=== PATIENT | male | born 1970 | race Caucasian/White ===

== ENCOUNTER 2020-11-29 08:10 | Day surgery (SDC) | payer OTHER ==
[2020-11-28 10:17] VITALS: BMI 39.7
[2020-11-29 08:33] VITALS: RESP 18; TEMP 98.3
[2020-11-29] MEDS ORDERED: SODIUM CHLORIDE 0.9% 500 ML 500 ML IV ONE (08:33)
[2020-11-29] MEDS ORDERED: fentaNYL (PF) 50 MCG/ML 2 ML AMP ONE (10:22)
[2020-11-29] MEDS: BENZOCAINE SPRAY 1 CAN MUCOUS MEM ONE ×2 (10:33→10:52)
[2020-11-29] MEDS ORDERED: fentaNYL (PF) 50 MCG/ML 2 ML AMP IV ONE (10:52)
[2020-11-29] MEDS ORDERED: MIDAZOLAM 2 MG/2 ML VIAL IV ONE (10:53)
[2020-11-29 12:05] VITALS: BP 136/82; PULSE 64
--- NOTE | 2020-11-29 12:32 | ECHOT ---
TRANSESOPHAGEAL ECHOCARDIOGRAM DATE OF SERVICE: 11/29/2020 PERFORMING PHYSICIAN: Adrien Vazquez M.D. PROCEDURE PERFORMED: Transesophageal echocardiogram. INDICATION: Rule out cardiac source of embolization. COMPLICATIONS: None. LEVEL OF SEDATION: Moderate, with sedation length of 15 minutes. PROCEDURE DESCRIPTION: After obtaining informed consent, the patient was brought to the transesophageal echocardiogram room. Pulse oximetry and heart rate monitors were attached to the patient. Subsequently the transesophageal echocardiogram probe was advanced through the bite guard to the mid esophagus, where 2D echocardiogram images as well as color Doppler images of various cardiac structures were obtained. Particular attention was paid to the interatrial septum. Please note that the study was performed using color Doppler and pulse Doppler and continuous-wave Doppler. FINDINGS: The left ventricular dimension and systolic function appeared to be within normal limits. The ejection fraction appeared to be in the range of 50% to 55%. The right ventricle appeared to be of normal size. The left atrium and right atrium appeared to be within normal limits for dimension. The aortic valve appeared to be a trileaflet valve without stenosis or regurgitation. The mitral valve seems to be normal. The interatrial septum appeared to be intact without any shunt. The left atrial appendage appeared to be intact as well. CONCLUSION: 1. No evidence of cardiac source of embolization. 2. Intact interatrial septum without any shunt. 3. Normal left atrial appendage. 4. Normal cardiac chamber sizes. 5. Normal left ventricular dimension and systolic function. 6. Normal intracardiac valves. 7. No evidence of pericardial effusion. MMODL / IJN: [id number] /
== END 2020-11-29 12:07 | disposition home or self-care (01) ==
LOC: CATHCVL 08:10
PROVIDERS: ATTEND Internal Medicine Interventional Cardiology
DX: I63.9 Cerebral infarction, unspecified (principal); Z20.822 Contact with and (suspected) exposure to COVID-19; I10 Essential (primary) hypertension; E78.5 Hyperlipidemia, unspecified; E11.9 Type 2 diabetes mellitus without complications; F17.210 Nicotine dependence, cigarettes, uncomplicated; Z79.899 Other long term (current) drug therapy; Z79.82 Long term (current) use of aspirin; Z79.84 Long term (current) use of oral hypoglycemic drugs; I25.10 Atherosclerotic heart disease of native coronary artery without angina pectoris
CPT/HCPCS: 93312; 93325; 87635; J2250; J3010

== ENCOUNTER → 2022-12-07 | Outpatient (CLI) | payer OTHER ==
[2022-12-07 16:22] LABS: HCT 45.4 % (39.6-50.0); MCH 30.8 pg (27.0-32.0); MCHC 35.2 d/dL (32.0-37.0); MCV 87.5 FL (80.0-97.0); Mean Platelet Volume 9.6 FL (9.5-12.2); NRBC Per 100 WBC 0 X 10*3/uL (0.00-0.01); Platelet Count 282 X 10*3/uL (140-440); RBC 5.19 X 10*6/uL (4.40-5.60); RDW 12.2 % (11.5-14.5); WBC 10.19 X 10*3/uL (4.50-10.00)
[2022-12-07 16:32] LABS: ALT 41 U/L (10-49); AST 29 U/L (14-35); Albumin 4.2 d/dL (3.8-4.9); Alkaline Phosphatase 70 U/L (41-126); BUN/Creat Ratio 10.89 Ratio (12.00-20.00); Blood Urea Nitrogen 9.8 mg/dL (9.0-27.0); Calcium 9.4 mg/dL (8.7-10.3); Carbon Dioxide 21.8 mmol/L (21.6-31.8); Chloride 99 mmol/L (96-109); Glucose 376 mg/dL (70-110); Potassium 4.3 mmol/L (3.5-5.5); Sodium 134 mmol/L (135-145); Total Bilirubin 1.1 mg/dL (0.3-1.2); Total Protein 7.2 d/dL (6.2-8.2)
== END | disposition home or self-care (01) ==
LOC: LABWHC1 10:39
PROVIDERS: ATTEND Surgery
DX: E55.9 Vitamin D deficiency, unspecified (principal); E88.810 Metabolic syndrome; R94.31 Abnormal electrocardiogram [ECG] [EKG]
CPT/HCPCS: 36415; 80053; 82306; 82607; 82746; 83036; 84425; 85027; 93005

== ENCOUNTER → 2022-12-07 | Outpatient (CLI) | payer OTHER ==
[2022-12-07 10:14] VITALS: BP 166/100; PULSE 89; TEMP 98.3; BMI 36.9
--- NOTE | 2022-12-22 12:44 | P.HPBAR ---
Bariatric H&P - History & Physicial H&P Date: 12/07/22 History & Physicial: Visit/CC: new patient Patient initial contact: Initial weight: Initial weight in pounds: Height: 6 ft 1 in Initial BMI: Last weight: Current weight: 127.006 kg Current weight in pounds: 280.00 Current BMI: 36.9 [place] body weight (based on NIH guidelines): 83.461 kg Excess body weight loss: The patient is a 52 year-old M who presents for Bariatric Assessment. Patient resents today for bariatric consultation. Patient is morbidly obese. BMI is 37. His requesting sleeve gastrectomy. Patient's had lifetime problems obesity. Past Medical History Past Medical History: CVA/TIA, Diabetes Mellitus, Hypertension, Osteoarthritis (OA), Sleep Apnea/CPAP/BIPAP Additional Past Medical History / Comment(s): TIA in August 2020-no residual eff ects, uses CPAP History of Any Multi-Drug Resistant Organisms: None Reported Past Surgical History: Heart Catheterization, Orthopedic Surgery Additional Past Surgical History / Comment(s): arthroscopic right knee surg. Past Anesthesia/Blood Transfusion Reactions: No Reported Reaction Past Psychological History: Depression Smoking Status: Former smoker Past Alcohol Use History: None Reported Additional Past Alcohol Use History / Comment(s): quit smoking 20-25 yrs. ago, maybe smoked a year or so Past Drug Use History: Marijuana Additional Drug Use History / Comment(s): uses edibles occasionally Surgical - Exam Vital Signs Temp Pulse BP 98.3 F 89 166/100 12/07/22 09:55 12/07/22 09:55 12/07/22 09:55 - General well developed, well nourished, no distress - Eyes PERRL - ENT normal pinna, normal nares - Neck no masses - Respiratory normal expansion - Cardiovascular Rhythm: regular - Abdomen Abdomen: soft, non tender Bariatric Assessment & Plan Plan: Morbid obesity, BMI 37. Patient is an excellent understanding of sleeve gastrectomy. We went over the risks and benefits of procedure. He understood the risk possible gastric staple line disruption, bleeding scarring. The patient will be scheduled for EGD to evaluate the stomach. Bariatric Checklist Checklist: Plan: Checklist: EGD: 1. Hiatal hernia: 2. H. Pylori: HgbA1c: Vitamin D: Smoking: Primary care physician referral: Valerie Mcgovern Psychiatry clearance: Cardiology clearance: Sleep study: Diet journal: VTE risk score: VTE risk level: Rehab needs at discharge:
== END ==
LOC: BARWHC3 09:36
PROVIDERS: ATTEND Surgery
DX: E66.01 Morbid (severe) obesity due to excess calories (principal); F32.A Depression, unspecified; E11.9 Type 2 diabetes mellitus without complications; M19.90 Unspecified osteoarthritis, unspecified site; G47.30 Sleep apnea, unspecified; I10 Essential (primary) hypertension; Z87.891 Personal history of nicotine dependence; Z86.73 Personal history of transient ischemic attack (TIA), and cerebral infarction without residual deficits; Z68.36 Body mass index [BMI] 36.0-36.9, adult; Z79.84 Long term (current) use of oral hypoglycemic drugs; Z79.899 Other long term (current) drug therapy; Z79.82 Long term (current) use of aspirin
CPT/HCPCS: 99212

== ENCOUNTER 2023-01-11 11:21 | Day surgery (SDC) | payer OTHER ==
[2023-01-08 12:13] VITALS: BMI 37.5
[2023-01-11] MEDS: LACTATED RINGERS 1,000 ML IV SCH ×2 (11:54→11:56)
[2023-01-11 11:55] LABS: Glucose,Whole Blood 234 mg/dL (70-110)
[2023-01-11 12:01] VITALS: RESP 16; TEMP 97.2
[2023-01-11] MEDS ORDERED: PROPOFOL 10 MG/ML 20 ML VIAL IV ONE (12:20)
--- NOTE | 2023-01-11 12:44 | P.GSHP ---
History of Present Illness H&P Date: 01/11/23 Chief Complaint: GERD This is a 52-year-old male presents today for EGD. Patient issues with GERD. Past Medical History Past Medical History: CVA/TIA, Diabetes Mellitus, Hypertension, Osteoarthritis (OA), Sleep Apnea/CPAP/BIPAP Additional Past Medical History / Comment(s): TIA in August 2020-no residual effects, uses CPAP History of Any Multi-Drug Resistant Organisms: None Reported Past Surgical History: Heart Catheterization, Orthopedic Surgery Additional Past Surgical History / Comment(s): arthroscopic right knee surg. Past Anesthesia/Blood Transfusion Reactions: No Reported Reaction Additional Past Anesthesia/Blood Transfusion Reaction / Comment(s): no blood transfusion Smoking Status: Former smoker, Vaper Medications and Allergies Home Medications Medication Instructions Recorded Confirmed Type Aspirin 81 mg PO DAILY 11/28/20 01/08/23 History Glimepiride [Amaryl] 4 mg PO [id number] 11/28/20 01/08/23 History Insulin Detemir (Levemir) [Levemir] 50 unit SQ QAM 11/28/20 01/08/23 History Metoprolol Succinate (ER) [Toprol 50 mg PO DAILY 11/28/20 01/08/23 History Xl] Pioglitazone [Actos] 30 mg PO DAILY 11/28/20 01/08/23 History Sertraline [Zoloft] 50 mg PO DAILY 11/28/20 01/08/23 History lisinopriL [Zestril] 10 mg PO DAILY 11/28/20 01/08/23 History metFORMIN HCL [Glucophage XR] 750 mg PO DAILY 11/28/20 01/08/23 History Allergies Allergy/AdvReac Type Severity Reaction Status Date / Time No Known Allergies Allergy Verified 01/11/23 11:53 Surgical - Exam Vital Signs Temp Pulse Resp BP Pulse Ox 97.2 F L 79 16 162/93 96 01/11/23 11:56 01/11/23 11:56 01/11/23 11:56 01/11/23 11:56 01/11/23 11:56 - General well developed - Eyes PERRL - ENT normal pinna - Neck no masses - Respiratory normal expansion - Cardiovascular Rhythm: regular - Abdomen Abdomen: soft, non tender Results - Labs Abnormal Lab Results - Last 24 Hours (Table) 01/11/23 Range/Units 11:50 POC Glucose (mg/dL) 234 H (70-110) mg/dL Assessment and Plan Assessment: GERD. We'll perform EGD.
--- NOTE | 2023-01-11 12:47 | P.OP ---
Date of Procedure: 01/11/23 Preoperative Diagnosis: GERD Morbid obesity Postoperative Diagnosis: Antral gastritis Mild esophagitis Procedure(s) Performed: EGD Anesthesia: MAC Surgeon: Kristian Gaxiola Pathology: other (Antrum, esophagus) Condition: stable Disposition: PACU Description of Procedure: Patient's placed on the endoscopy table in the lateral position. She received IV sedation. The gastro-/oropharynx passed in the esophagus and stomach. Scope was placed through the pylorus. The first and second portion of the duodenum appeared normal. Scope summer back the antrum was inflamed. A biopsies performed. Scope was unretroflexed and remainder of the stomach appeared normal. The GE junction was at 40 cms. The distal esophagus appeared mildly inflamed. A biopsies performed. The proximal esophagus appeared normal. Scope withdrawn for patient.
[2023-01-11 13:11] VITALS: BP 156/96; PULSE 80
== END 2023-01-11 13:28 | disposition home or self-care (01) ==
LOC: ORWHC2ENDO 11:21
PROVIDERS: ATTEND Surgery
DX: K29.50 Unspecified chronic gastritis without bleeding (principal); K21.00 Gastro-esophageal reflux disease with esophagitis, without bleeding; I10 Essential (primary) hypertension; E66.01 Morbid (severe) obesity due to excess calories; M19.90 Unspecified osteoarthritis, unspecified site; E11.9 Type 2 diabetes mellitus without complications; G47.33 Obstructive sleep apnea (adult) (pediatric); Z86.73 Personal history of transient ischemic attack (TIA), and cerebral infarction without residual deficits; Z87.891 Personal history of nicotine dependence; Z79.4 Long term (current) use of insulin; Z79.84 Long term (current) use of oral hypoglycemic drugs; Z79.899 Other long term (current) drug therapy
CPT/HCPCS: 43239; J2704; 88305

== ENCOUNTER → 2023-04-19 | Outpatient (CLI) | payer OTHER ==
[2023-04-19 10:36] VITALS: BP 166/97; PULSE 83; TEMP 97.9; BMI 37.5
--- NOTE | 2023-04-19 14:30 | P.HPBAR ---
Bariatric H&P - History & Physicial H&P Date: 04/19/23 History & Physicial: Visit/CC: EGD F/U, pre-surg gastric sleeve Patient initial contact: Initial weight: Initial weight in pounds: Height: 6 ft 1 in Initial BMI: Last weight: Current weight: 129.274 kg Current weight in pounds: 285.00 Current BMI: 37.5 [place] body weight (based on NIH guidelines): 83.461 kg Excess body weight loss: The patient is a 52 year-old M who presents for Bariatric Assessment. Patient presents today for presurgical consultation. He is undergoing diagnostic class today. Patient's morbid obese. His BMI is 38. Patient is an excellent understanding of sleeve gastrectomy. Past Medical History Past Medical History: CVA/TIA, Diabetes Mellitus, Hypertension, Osteoarthritis (OA), Sleep Apnea/CPAP/BIPAP Additional Past Medical History / Comment(s): TIA in August 2020-no residual effects, uses CPAP History of Any Multi-Drug Resistant Organisms: None Reported Past Surgical History: Heart Catheterization, Orthopedic Surgery Additional Past Surgical History / Comment(s): arthroscopic right knee surg. Past Anesthesia/Blood Transfusion Reactions: No Reported Reaction Additional Past Anesthesia/Blood Transfusion Reaction / Comm: no blood transfusion Past Psychological History: Depression Smoking Status: Former smoker, Vaper Past Alcohol Use History: None Reported Additional Past Alcohol Use History / Comment(s): quit smoking 20-25 yrs. ago, maybe smoked a year or so Past Drug Use History: Marijuana Additional Drug Use History / Comment(s): uses edibles occasionally. states hasn't done in a long time Surgical - Exam Vital Signs Temp Pulse BP 97.9 F 83 166/97 04/19/23 10:21 04/19/23 10:21 04/19/23 10:21 - General well developed, well nourished, no distress - Eyes PERRL - ENT normal pinna - Neck no masses - Respiratory normal expansion - Cardiovascular Rhythm: regular - Abdomen Abdomen: soft, non tender Bariatric Assessment & Plan Plan: Morbid obesity. Patient will be scheduled for sleeve gastrectomy once his insurance authorization requirements have been met. Patient since her surgery including possible gastric injury, bleeding and infection presents with a risk of gastric staple line disruption scarred and bleeding. Bariatric Checklist Checklist: Plan: Checklist: EGD: 1. Hiatal hernia: 2. H. Pylori: HgbA1c: Vitamin D: Smoking: Primary care physician referral: Valerie Mcgovern Psychiatry clearance: Cardiology clearance: Sleep study: Diet journal: VTE risk score: VTE risk level: Rehab needs at discharge:
== END ==
LOC: BARWHC3 09:50
PROVIDERS: ATTEND Surgery
DX: E66.01 Morbid (severe) obesity due to excess calories (principal); G45.9 Transient cerebral ischemic attack, unspecified; F32.A Depression, unspecified; F17.290 Nicotine dependence, other tobacco product, uncomplicated; F12.90 Cannabis use, unspecified, uncomplicated; Z71.3 Dietary counseling and surveillance; Z98.890 Other specified postprocedural states; Z90.49 Acquired absence of other specified parts of digestive tract; Z79.82 Long term (current) use of aspirin
CPT/HCPCS: 97804; 99211